=== PATIENT | female | born 1995 | race Caucasian/White ===

== ENCOUNTER 2022-03-30 12:03 | Emergency (ER) | payer MEDICAID ==
[~2022-03-30] VITALS: Ht 167.6 cm; Wt 56.8 kg
[2022-03-30 12:40] VITALS: BP 130/79
[2022-03-30] MEDS ORDERED: SULF1TAB49 PO (13:04)
== END 2022-03-30 13:14 | disposition home or self-care (01) ==
LOC: ER 12:04
DX: I89.1 Lymphangitis (principal)
CPT/HCPCS: 99283

== ENCOUNTER 2022-04-14 14:51 | Emergency (ER) | payer MEDICAID ==
[~2022-04-14] VITALS: Ht 167.6 cm; Wt 56.8 kg
[2022-04-14 16:00] VITALS: BP 131/81
[2022-04-14] MEDS ORDERED: DOXYCYCLINE 100MG CAPSULE PO STA (19:01)
[2022-04-14] MEDS ORDERED: DOXY-1 PO (19:03)
[2022-04-14] MEDS ORDERED: NAPR-56 PO (19:03)
[2022-04-14] MEDS ORDERED: naproxen 500mg tablet PO ONE (19:05)
== END 2022-04-14 19:28 | disposition home or self-care (01) ==
LOC: ER 14:51
DX: I80.8 Phlebitis and thrombophlebitis of other sites (principal); R22.32 Localized swelling, mass and lump, left upper limb; F17.200 Nicotine dependence, unspecified, uncomplicated; Z79.2 Long term (current) use of antibiotics; Z79.899 Other long term (current) drug therapy
CPT/HCPCS: 93971; 99284